=== PATIENT | male | born 1955 | race Caucasian/White ===

== ENCOUNTER → 2021-02-06 02:49 | Outpatient (CLI) | payer SELFPAY ==
[2021-02-06 13:12] LABS: Influenza Control Positive
[2021-02-06 19:39] LABS: SARS-CoV-2 RNA PCR Negative
== END ==
PROVIDERS: PCP Family Medicine; Visit Provider Physician Assistant
DX: R05.9 Cough, unspecified (principal); Z20.822 Contact with and (suspected) exposure to COVID-19
CPT/HCPCS: 87804; C9803; U0003; U0005

== ENCOUNTER → 2021-02-26 15:43 | Outpatient (CLI) | payer MEDICARE, SELFPAY ==
--- NOTE | ~2021-02-26 | XR_ITS ---
EXAMINATION: XR chest 2V DATE: 02/26/2021 16:16 INDICATION: Unspecified acute lower respiratory infection. COVID-19 positive 3 weeks ago. Fever and s hortness of breath. TECHNIQUE: Frontal and lateral views of the chest were obtained. COMPARISON: Chest 2 views 09/13/2007 FINDINGS: A calcified left lung nodule is consistent with old granulomatous disease. No pleural effus ion or pneumothorax. The heart size is normal. IMPRESSION: 1. No acute cardiopulmonary disease. Reviewed, dictated and finalized at location B. SAFETY ENGINEER
== END ==
PROVIDERS: PCP Family Medicine; Visit Provider Family Medicine
DX: J22 Unspecified acute lower respiratory infection (principal)
CPT/HCPCS: 71046

== ENCOUNTER 2022-11-17 14:35 | Emergency (ER) | payer MEDICARE, SELFPAY ==
--- NOTE | ~2022-11-17 | XR_ITS ---
EXAM: XR foot LT min 3V DATE: 11/17/2022 15:06 HISTORY: left foot pain DORSAL FOOT PAIN . COMPARISON: None available. FINDINGS: Normal mineralization. No fracture or dislocation. No lytic or blastic lesion. Moderate de generative change at the first MTP joint. Achilles and plantar enthesopathy. No erosion or periosteal change. Soft tissues within normal limits. IMPRESSION: No acute osseous finding in the left foot. Reviewed, dictated and finalized at location K.
[2022-11-17 15:39] VITALS: BP 141/90; PULSE 98; RESP 20; TEMP 37.2; O2SAT 98
--- NOTE | 2022-11-17 17:43 | ED.GENADULT ---
HPI - General Adult General Chief complaint: Extremity Injury, Lower Stated complaint: left foot injury Time Seen by Provider: 11/17/22 17:42 Source: patient Mode of arrival: wheelchair Limitations: no limitations History of Present Illness HPI narrative: This is a 59-year-old male who presents to the ED with chief complaint of a left foot injury that occurred today. Patient reports he stubbed his toe earlier today and then while laying in bed his dog jumped on the bed, further injury to the foot. He reports the dog seemed to improve until his toes backwards. He now reports dorsal foot pain near the metatarsophalangeal joints. States he has been having difficulty with ambulation due to pain. Denies any further site of pain or injury. Denies numbness or weakness. Denies wounds. 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 Tinnitus of both ears Surgical History Surgical History H/O wrist surgery Family History Family History Sibling Bladder cancer Colon cancer Lung cancer Diabetes mellitus Mother Breast cancer Father Skin cancer Social History Social History Social History: Caffeine-coffee Smoking status: Never smoker Second hand tobacco smoke exposure: No Alcohol intake: former Substance use: never Substance use type: does not use Lack of Transportation: No Lack of Food: Never True Current Housing: I Have Housing Concerned About Future Housing: No Difficulty Paying Gas/Electric Bills: No Difficulty Paying for Meds: No Currently Unemployed: No Education: Trade/Vocational Certificate Difficulty w/ Childcare or Family Care: No Living arrangements: with family Occupation/Education: retired Gender identity (if verbalized by the patient): Male Spiritual care concerns: No Agree to blood products: Yes Exam Narrative: GENERAL: Well-appearing, well-nourished, and in no acute distress. HEAD: Normocephalic, atraumatic. MSK: Normal range of motion. No edema. Mild tenderness to palpation dorsally to the first and second MTP joints of the left foot. No swelling. No bruising. No deformity , neurovascularly intact distally. SKIN: Warm, dry, no rash. No wounds. No warmth, erythema NEURO: Alert and oriented x3. No focal deficits. PSYCH: Normal mood and affect. Course Vital Signs Vital signs: Vital Signs Temperature 99 F 11/17/22 15:39 Pulse Rate 98 11/17/22 15:39 Respiratory Rate 20 11/17/22 15:39 Blood Pressure 141/90 H 11/17/22 15:39 Pulse Oximetry 98 11/17/22 15:39 Temperature 99 F 11/17/22 15:39 Pulse Rate 98 11/17/22 15:39 Respiratory Rate 20 11/17/22 15:39 Blood Pressure 141/90 H 11/17/22 15:39 Pulse Oximetry 98 11/17/22 15:39 Medical Decision Making MDM Narrative Medical decision making narrative: This is a 67-year-old male who presents to the ED with chief complaint of left foot injury. Dog jumped on his left foot. He also stubbed his left great toe. Vitals are normal. Exam shows mild tenderness to the dorsum of the foot. X-rays are negative for any acute findings. Symptoms consistent with flare above arthritis versus ligamentous injury. He already has crutches to use to remain weightbearing as tolerated. He has a follow-up appointment with PCP this week. Naproxen twice per
[2022-11-17 18:22] VITALS: BP 144/76; PULSE 90; RESP 16; O2SAT 99
== END 2022-11-17 18:23 | disposition home or self-care (01) ==
LOC: ANHED 17:57
PROVIDERS: Emergency Provider Physician Assistant; PCP Family Medicine
DX: S99.922A Unspecified injury of left foot, initial encounter (principal); F41.9 Anxiety disorder, unspecified; I10 Essential (primary) hypertension; K21.9 Gastro-esophageal reflux disease without esophagitis; E78.5 Hyperlipidemia, unspecified; W22.09XA Striking against other stationary object, initial encounter
CPT/HCPCS: 73630; 99283

== ENCOUNTER 2023-10-09 10:22 | Outpatient (CLI) | payer MEDICARE, SELFPAY ==
[2023-10-09 10:39] LABS: Basophils Absolute Auto 0.1 K/mm3 (0.0-0.1); Basophils Percent Auto 1.1 % (0.2-1.2); Eosinophils Absolute Auto 0.3 K/mm3 (0-0.3); Eosinophils Percent Auto 4.2 % (0-4.4); Hematocrit 50.3 % (42.0-52.0); Hemoglobin 16.9 g/dL (14.0-18.0); Immature Granulocyte Absolute 0.02 K/mm3 (0.00-0.031); Immature Granulocyte Percent A 0.2 % (0-0.5); Lymphocytes Absolute Auto 2.54 K/mm3 (0.9-3.2); Mean Corpuscular HGB Conc 33.6 g/dl (32-36); Mean Corpuscular Hemoglobin 31.4 pg (26-34); Mean Corpuscular Volume 93.5 fl (80-100); Mean Platelet Volume 9.4 fl (7.4-10.4); Monocytes Absolute Auto 0.8 K/mm3 (0.1-0.6); Monocytes Percent Auto 9.6 % (2.6-8.5); Neutrophils Absolute Auto 4.4 K/mm3 (1.3-6.7); Neutrophils Percent Auto 53.9 % (45.5-73.1); Platelet Count Result 232 k/mm3 (150-375); Red Blood Count 5.38 M/mm3 (4.6-6.20); Red Cell Distribution Width 15.1 % (11.5-14.5); White Blood Count 8.2 K/mm3 (4.5-10.0)
[2023-10-09 12:54] LABS: Alanine Aminotransferase 131 U/L (6-50); Albumin Level 4.6 g/dL (3.5-5.1); Alkaline Phosphatase 96 U/L (38-126); Anion Gap 10 mmol/L (4-12); Aspartate Amino Transferase 126 U/L (17-59); Bilirubin,Total 0.7 mg/dL (0.2-1.3); Blood Urea Nitrogen 11 mg/dL (9-20); Calcium 9.6 mg/dL (8.4-10.2); Carbon Dioxide 29 mmol/L (22-30); Chloride 97 mmol/L (98-107); Estimated Glomerular Filt Rate > 60; Glucose 111 mg/dL (65-110); Iron 121 ug/dL (49-181); Potassium 4.2 mmol/L (3.4-5.0); Sodium 136 mmol/L (137-145)
[2023-10-09 13:07] LABS: Percent Iron Saturation 39 % (20-50)
[2023-10-09 13:08] LABS: Transferrin 239 mg/dL (206-381)
== END 2023-10-09 10:23 | disposition home or self-care (01) ==
LOC: ANHLAB 10:26
PROVIDERS: Nurse Practitioner Family; Visit Provider Internal Medicine Hematology & Oncology
DX: E83.110 Hereditary hemochromatosis (principal)
CPT/HCPCS: 36415; 80053; 82728; 83540; 83550; 84466; 85025

== ENCOUNTER 2024-01-06 13:28 | Outpatient (CLI) | payer MEDICARE, SELFPAY ==
[2024-01-06 13:48] LABS: Basophils Absolute Auto 0.1 K/mm3 (0.0-0.1); Basophils Percent Auto 1.3 % (0.2-1.2); Eosinophils Absolute Auto 0.2 K/mm3 (0-0.3); Eosinophils Percent Auto 2.2 % (0-4.4); Hematocrit 48.3 % (42.0-52.0); Hemoglobin 16.9 g/dL (14.0-18.0); Immature Granulocyte Absolute 0.03 K/mm3 (0.00-0.031); Immature Granulocyte Percent A 0.4 % (0-0.5); Lymphocytes Absolute Auto 2.12 K/mm3 (0.9-3.2); Lymphocytes Percent Auto 29.7 % (18.3-44.2); Mean Corpuscular Hemoglobin 34.3 pg (26-34); Mean Platelet Volume 8.9 fl (7.4-10.4); Monocytes Absolute Auto 0.8 K/mm3 (0.1-0.6); Monocytes Percent Auto 11.2 % (2.6-8.5); Neutrophils Percent Auto 55.2 % (45.5-73.1); Platelet Count Result 205 k/mm3 (150-375); Red Blood Count 4.93 M/mm3 (4.6-6.20); Red Cell Distribution Width 13.2 % (11.5-14.5); White Blood Count 7.2 K/mm3 (4.5-10.0)
[2024-01-06 18:34] LABS: Iron 239 ug/dL (49-181)
[2024-01-06 18:47] LABS: Percent Iron Saturation 89 % (20-50)
== END 2024-01-06 13:29 | disposition home or self-care (01) ==
LOC: ANHLAB 13:29
PROVIDERS: Visit Provider Internal Medicine Hematology & Oncology
DX: E83.110 Hereditary hemochromatosis (principal)
CPT/HCPCS: 36415; 82728; 83540; 83550; 85025

== ENCOUNTER 2024-03-15 13:33 | Outpatient (CLI) | payer MEDICARE, SELFPAY ==
[2024-03-15 13:51] LABS: Basophils Absolute Auto 0.1 K/mm3 (0.0-0.1); Basophils Percent Auto 1.3 % (0.2-1.2); Eosinophils Absolute Auto 0.1 K/mm3 (0-0.3); Eosinophils Percent Auto 1.7 % (0-4.4); Hematocrit 47.9 % (42.0-52.0); Hemoglobin 16.6 g/dL (14.0-18.0); Immature Granulocyte Absolute 0.02 K/mm3 (0.00-0.031); Immature Granulocyte Percent A 0.3 % (0-0.5); Lymphocytes Absolute Auto 1.82 K/mm3 (0.9-3.2); Lymphocytes Percent Auto 26.3 % (18.3-44.2); Mean Corpuscular HGB Conc 34.7 g/dl (32-36); Mean Corpuscular Hemoglobin 35.3 pg (26-34); Mean Corpuscular Volume 101.9 fl (80-100); Mean Platelet Volume 9.1 fl (7.4-10.4); Monocytes Absolute Auto 0.5 K/mm3 (0.1-0.6); Monocytes Percent Auto 7.7 % (2.6-8.5); Neutrophils Absolute Auto 4.3 K/mm3 (1.3-6.7); Neutrophils Percent Auto 62.7 % (45.5-73.1); Platelet Count Result 227 k/mm3 (150-375); White Blood Count 6.9 K/mm3 (4.5-10.0)
--- OUTSIDE RECORDS SUMMARY | 2024-03-15 14:10 | XMS_ITS | Clinical Summary ---
Author Organization [facility] Nabil arora Jose Address [address] [place] [address] Care Team Providers Care Digital Account Supervisor Name Role Phone Ritu Leigh MD Primary Care Provider [phone] Allergies No known active allergies Medications amitriptyline HCl (AMITRIPTYLINE ORAL) Take 25 mg by mouth daily. Active DICLOFENAC SODIUM OP Take 50 mg by mouth daily. Active SIMVASTATIN ORAL Take 20 mg by mouth daily. Active METOPROLOL TARTRATE ORAL Take 50 mg by mouth daily. Active ALPRAZolam (XANAX) 0.5 mg tablet Take 0.5 mg by mouth nightly as needed for Anxiety. Active Active Problems Problem Noted Date Diagnosed Date Hereditary hemochromatosis 09/14/2023 Encounters Date Type Department Care Team Description 03/15/2024 Telephone [facility] Oncology and Hematology - [address] [place] [address] Arnold Yeung MD Labs for appt 03/14/2024 Orders Only [facility] Oncology and Hematology - [place] [address] [place] [address] Arnold Yeung MD Hereditary hemochromatosis (Primary Dx) 02/23/2024 External Device Data STL ABSTRACTION Provider, Abstract 01/08/2024 Orders Only [facility] Oncology and Hematology - [place] [address] [place] [address] Arnold Yeung MD 12/16/2023 External Device Data STL ABSTRACTION Provider, Abstract from Last 3 Months Family History Medical History Relation Name Comments Cancer Sister Relation Name Status Comments Father Mother Sister Alive Social History Tobacco Use Types Packs/Day Years Used Date Smoking Tobacco: Never Alcohol Use Standard Drinks/Week Comments Yes 0 (1 standard drink = 0.6 oz pur e alcohol) socially Sex and Gender Information Value Date Recorded Sex Assigned at Not on file Legal Sex Male 12:44 PM CDT Gender Identity Not on file Sexual Orientation Not on file Last Filed Vital Signs Vital Sign Reading Time Taken Comments Blood Pressure 173/103 09/14/2023 2:02 PM CDT Pulse 63 09/14/2023 2:02 PM CDT Temperature 36.7 ??C (98 ??F) 09/14/2023 1:59 PM CDT Respiratory Rate 18 09/14/2023 1:59 PM CDT Oxygen Saturation 94% 09/14/2023 1:59 PM CDT Inhaled Oxygen Concentration - - Weight 83 kg (183 lb) 09/14/2023 1:59 PM CDT Height 167.6 cm (5' 6 ) 09/14/2023 1:59 PM CDT Body Mass Index 29.54 09/14/2023 1:59 PM CDT Plan of Treatment Upcoming Encounters Date Type Department Care Team (Late st Contact Info) Description 03/16/2024 1:15 PM MOTOR VEHICLE FIELD REPRESENTATIVE Office Visit [facility] Oncology and Hematology [facility] [address] [facility] [address] [place] [address] Arnold Yeung MD [address] [facility] [address] [place] [address] Health Maintenance Due Date Last Done Comments Pre-Diabetes and Diabetes Screening 1954 DTAP/TDAP/TD VACCINES (1 - Tdap) 1973 COLORECTAL SCREENING 08/05/1999 Colorectal Cancer Screening 08/05/1999 FIT-DNA Q 3 years 08/05/1999 FIT/FOBT Q 1 year 08/05/1999 Flex Sig/CT Colonography Q 5 years 08/05/1999 PNEUMOCOCCAL VACCINE 65+ YEARS (1 of 1 - PCV) 08/05/19 05 ZOSTER VACCINE (1 of 2) 2004 INFLUENZA VACCINE (#1) 2023 12/16/2013 [place]) Prev entative Visit/Annual Wellness Visit 02/17/2024 RSV VACCINE (60+ or ) (1 - 1-dose 75+ series) 2029 Procedures Procedure Name Priority Date/Time Associated Diagnosis Comments IRON LEVEL Routine 01/06/2024 2:51 PM MOTOR VEHICLE FIELD REPRESENTATIVE CBC WITH DIFFERENTIAL Routine 01/06/2024 2:22 PM MOTOR VEHICLE FIELD REPRESENTATIVE from Last 3 Months Results * IRON LEVEL (01/06/2024 2:51 PM MOTOR VEHICLE FIELD REPRESENTATIVE) Blood Arnold Yeung MD CHEMISTRY ORDERABLES Final Resu lt * CBC WITH DIFFERENTIAL (01/06/2024 2:22 PM MOTOR VEHICLE FIELD REPRESENTATIVE) Blood Arnold Yeung MD HEMATOLOGY ORDERABLES Final Res ult from Last [address] [place] [address] [employer] [facility] [facility] Address: [address] [address] Care Teams Digital Account Supervisor Relationship Specialty Start Date End Date Ritu Leigh MD [address] [place] [address] PCP - General Family Practice 09/15/23
--- OUTSIDE RECORDS SUMMARY | 2024-03-15 14:10 | XMS_ITS | Continuity of Care Document ---
Author Organization [facility] Address [address] [facility] [address] [place] [address] Phone Care Team Providers Care Chimney Repairer Name Role Phone [facility] Unavailable Unavail able Kurt Evans Unavailable Unavailable Procedures Procedure Date SV Plastic Sph =/- 7.12 To +/- 20 D Frames Deluxe Tint Photochromatic, Plastic Tax - Medical SV Poly Carb Sph +/- 7.12 To +/- 20 D Au Frames Deluxe Polycarb Lens Per Lens Tint Photochromatic, Polycarb 7 Scratch Resistant Coating Eye Exam, New Patient Refraction Advance Directives Directive Yes / No Effective Date File Name No Information Encounters Encounter Description Practice Location Reason(s) For Visit Diagnoses Date Provider Providers Copied on Encounter [facility], [address] [place], [place] [address], [place], [place], [id number], [place] tel:[phone] [facility] No Information [address] [facility] . [address] [facility], [facility] [address], [place], [place], [id number], [place]. tel:[phone] Referring Provider: Anil Arana [facility], [place], [address]. tel:[phone] sulting Provider: Kurt Evans, [address] [place] [address], [place], [address]. tel:[phone] [facility], [address], [place], [place], [id number], [place] tel:[phone] [facility] No Information 7 [facility] . [address] [facility], [address], [place], [place], [address], [place]. tel:[phone] Referring Provider: Anil Arana, [address] [place] [address] [address], [place], [address]. tel:[phone] sulting Provider: Kurt Evans, [address] [place] [address], [place], [address]. tel:[phone] [facility], [address], [place], [place], [id number], [place] tel:[phone] [facility] No Information 7 Nava JAREK Ma. [address] [place] [address] , [address], [place], [address], [place]. tel:[phone] Family History Family Member Type Diagnosis Age At Onset No Information Payers Payer name Insurance type Covered libertarian ID Authoriza tion(s) No Information Social History Type Description Quantity Date Captured Comments Sex Male Smoking Status No Information Chief Complaint And Reason For Visit No Information Reason For Referral Reason For Referral No Information History Of Present Illness Encounter Date Complaint History Of Prese nt Illness No Information Functional Status Date Functional Assessmen t No Information Instructions Date Instruction Additional Infor mation No Information Assessments Type Assessment Date No Information Patient Care Teams Name Effective Dates (start - stop) Status Members No Information
--- OUTSIDE RECORDS SUMMARY | 2024-03-15 14:10 | XMS_ITS | Encounter Summary ---
Author Organization [facility] Address [address] [place] [address] Care Team Providers Care String Cutter Name Role Phone Ritu Leigh MD Primary Care Provider [phone] Encounter Details Date Type Department Care Team (Late Contact Info) Description 03/14/2024 Orders Only [facility] Oncology and Hematology [facility] [address] [place] [address] Arnold Yeung MD [facility] [address] [place] [address] Hereditary hemochromatosis (Primary Dx) Social History Tobacco Use Types Packs/Day Years Used Date Smoking Tobacco: Never Alcohol Use Standard Drinks/Week Comments Yes 0 (1 standard drink = 0.6 oz pur e alcohol) socially Sex and Gender Information Value Date Recorded Sex Assigned at Not on file Legal Sex Male 12:44 PM CDT Gender Identity Not on file Sexual Orientation Not on file documented as of this encounter Plan of Treatment Upcoming Encounters Date Type Department Care Team (Late Contact Info) Description 03/16/2024 1:15 PM INTAKE MANAGER Office Visit [facility] Oncology and Hematology - [place] [address] [place] [address] Arnold Yeung MD [facility] [address] [place] [address] Scheduled Orders Name Type Priority Associated Diagnoses Orde r Schedule COMPREHENSIVE METABOLIC PANEL Lab Routine Hereditary hemochromatosis Expected: 03/14/2024, Expires: 03/14/2025 CBC WITH DIFFERENTIAL Lab Routine Hereditary hemochromatosis Expected: 03/14/2024, Expires: 03/14/2025 FERRITIN Lab Routine Hereditary hemochromatosis Expected: 03/14/2024, Expires: 03/14/2025 IRON, TIBC, AND PERCENT SATURATION Lab Routine Hereditary hemochromatosis Expected: 03/14/2024, Expires: 03/14/2025 documented as of this encounter Visit Diagnoses Diagnosis Hereditary hemochromatosis- Primary documented in this encounter Care Teams String Cutter Relationship Specialty Start Date End Date Ritu Leigh MD [address] [place] [phone] PCP - General Family Practice 09/15/23 documented as of this encounter
--- OUTSIDE RECORDS SUMMARY | 2024-03-15 14:10 | XMS_ITS | Clinical Summary ---
Author Organization [facility] Address [address] [facility] [place] [address] Phone Care Team Providers Care Aws Developer Name Role Phone Donna Leigh APRN Unavailable Unavailable Ritu Leigh MD Primary Care Provider [phone] Lupe Morales PSYCHOLOGIST DEVELOPMENTAL Unavailable [phone] Allergies No known active allergies Medications ALPRAZolam (XANAX) 0.5 mg tablet 0 08/17/2017 Active amitriptyline (ELAVIL) 25 mg tablet TK 1 T PO BID 2 07/17/[address] (VOLTAREN) 50 mg EC tablet Take 1 tablet (50 mg total) by mouth 2 (two) times a day 0 06/01/2017 Active metoprolol (LOPRESSOR) 25 mg tablet TK 1 T PO BID 0 06/30/2017 Active simvastatin (ZOCOR) 20 mg tablet TK 1 T PO D 5 08/21/2017 Active colestipoL (COLESTID) 1 gram tablet 06/03/2019 Active doxycycline hyclate 100 mg capsule Take 1 tablet/caps ule (100 mg total) by mouth 2 (two) times a day 07/30/2021 Active Active Problems Problem Noted Date Diagnosed Date Hemochromatosis 02/19/2017 Resolved Problems Problem Noted Date Diagnosed Date Resolved Date 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 09/05/2017 Immunizations Name Administration Dates Next Due Influenza, Trivalent, IM (ANDREW) 12/16/2013 Surgical History Surgery Date Site/Laterality Comments COLONOSCOPY Medical History Medical History Date Comments Hemochromatosis Hypertension Hypercholesteremia Depression Family History Medical History Relation Name Comments Diabetes Brother Heart attack Father Colon cancer Sister Relation Name Status Comments Brother Father Sister Social History Tobacco Use Types Packs/Day Years Used Date Smoking Tobacco: Never Smokeless Tobacco: Never Alcohol Use Standard Drinks/Week Comments Yes 0 (1 standard drink = 0.6 oz pur e alcohol) AUDIT-C Answer Date Recorded Q1: How often do you have a drink containing alc ohol? Monthly or less 06/30/2022 Q2: How many drinks containi ng alcohol do you have on a typical day when you are drinking? 1 or 2 06/30/2022 Q3: How often do you have si x or more drinks on one occasion? 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 Gender Identity Not on file Sexual Orientation Not on file Obstetrics History Last Filed Vital Signs Vital Sign Reading Time Taken Comments Blood Pressure 167/113 06/29/2023 3:11 PM CDT Pulse 65 06/29/2023 3:11 PM CDT Temperature 36.3 ??C (97.4 ??F) 06/29/2023 3:11 PM CD T Respiratory Rate 18 06/29/2023 3:11 PM CDT Oxygen Saturation 96% 06/29/2023 3:11 PM CDT Inhaled Oxygen Concentration - - Weight 84.9 kg (187 lb 3.2 oz) 06/29/2023 3:11 P M CDT Height 167.6 cm (5' 6 ) 04/27/2023 2:54 PM CDT Body Mass Index 30.21 04/27/2023 2:54 PM CDT Plan of Treatment Health Maintenance Due Date Last Done Comments Colon Cancer Screening-Colonoscopy 1955 Depression Screening 1954 Fall Risk Assessment 1954 Hepatitis C Screening 1954 DTaP/Tdap/Td Vaccine (1 - Tdap) 1965 Hepatitis B Screening 1972 Zoster Vaccine (1 of 2) 2004 Pneumococcal vaccine 65+ (1 of 1 - PCV) 08/05/2019 Well Visit 65+ 08/05/2019 Prostate Cancer Screening-PSA 09/14/2023 09/13/2021 Influenza Vaccine (#1) 2023 12/16/2013 Procedures Procedure Name Priority Date/Time Associated Diagnosis Comments PSA SCREEN Routine 09/13/2021 8:49 AM CDT from Last 3 Months or Most Recently Relevant to Health Maintenance Results * PSA screen (09/13/2021 8:49 AM CDT) PSA-Total 1.71 <=5.40 ng/mL NAPOLEON ALVARADO Comment: Interpretive Data ?AGE ? SEX ?REFERENCE INTERVAL 0 minutes-150 years ?Female ?None 0 minutes-49 years ? Male ?None ? 50-59 years ? Male ?0-3.90 ? 60-69 years ? Male ?0-5.40 ? 70-79 years ? Male ?0-6.20 ? 80-150 years ?Male ?0-6.20 The Declan PSA Total assay procedure was used. Results from different manufacturers or methods may not be comparable. Serial testing should be performed using the same method. Current interpretive data last revised 21. Testing performed by: [facility], [address] [place] [address]., [address] Blood 09/13/2021 8:49 AM CDT 09/13/2021 9:55 AM CDT us Joelle TREVIZO LAB BLOOD ORDERABLES Final Result [facility] [address] [facility] Department [place] [address] from Last 3 Months or Most Recently Relevant to Health Maintenance Insurance [employer] MEDICARE HMO [employer] MEDICARE HMO Care Teams Aws Developer Relationship Specialty Start Date End Date Ritu Leigh MD PCP - General Family Medicine 05/10/18 Donna Leigh APRN Neurosurgery 08/28/17 Lupe Morales NP Nurse Practitioner Nurse Practitioner 04/06/23
--- OUTSIDE RECORDS SUMMARY | 2024-03-15 14:10 | XMS_ITS | Encounter Summary ---
Author Organization [facility] Address [address] [place] [address] Care Team Providers Care Track Layer Head Name Role Phone Ritu Leigh MD Primary Care Provider [phone] Reason for Visit * Reason Onset Date Comments Labs for appt 03/15/2024 Encounter Details Date Type Department Care Team (Late Contact Info) Description 03/15/2024 Telephone [facility] Oncology and [facility] [address] [place] [address] Arnold Yeung MD [address] [facility] [address] [place] [address] Labs for appt Social History Tobacco Use Types Packs/Day Years Used Date Smoking Tobacco: Never Alcohol Use Standard Drinks/Week Comments Yes 0 (1 standard drink = 0.6 oz pur e alcohol) socially Sex and Gender Information Value Date Recorded Sex Assigned at Not on file Legal Sex Male 12:44 PM CDT Gender Identity Not on file Sexual Orientation Not on file documented as of this encounter Miscellaneous Notes * Telephone Encounter - Ileana Hoyos - 03/15/2024 9:37 AM CST LVM for patient asking if he could get his labs done today for his appointment tomorrow. METER REPAIR SUPERVISOR documented in this encounter Plan of Treatment Upcoming Encounters Date Type Department Care Team (Late Contact Info) Description 03/16/2024 1:15 PM GAS METER REPAIR SUPERVISOR Office Visit [facility] Oncology [facility] [address] [place] [address] Arnold Yeung MD [address] [facility] [address] [place] [address] documented as of this encounter Visit Diagnoses Not on filedocumented in this encounter Care Teams Track Layer Head Relationship Specialty Start Date End Date Ritu Leigh MD [address] [place] [address] PCP - General Family Practice 09/15/23 documented as of this encounter
--- OUTSIDE RECORDS SUMMARY | 2024-03-15 14:10 | XMS_ITS | Referral Summary ---
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 Testing performed by: [facility], [address] [place] [address]., [address] Blood 09/13/2021 8:49 AM CDT 09/13/2021 9:55 AM CDT us Joelle TREVIZO LAB BLOOD ORDERABLES Final Result [facility] [address] [facility] Department [place] [address] from Last 3 Months or Most Recently Relevant to Health Maintenance Insurance [facility] MEDICARE HMO [facility] MEDICARE HMO Care Teams Dry Chain Puller Relationship Specialty Start Date End Date Ritu Leigh MD PCP - General Family Medicine 05/10/18 Donna Leigh APRN Neurosurgery 08/28/17 Lupe Morales NP Nurse Practitioner Nurse Practitioner 04/06/23
[2024-03-15 15:51] LABS: Alanine Aminotransferase 145 U/L (6-50); Albumin Level 4.5 g/dL (3.5-5.1); Alkaline Phosphatase 79 U/L (38-126); Anion Gap 11 mmol/L (4-12); Aspartate Amino Transferase 175 U/L (17-59); Bilirubin,Total 0.8 mg/dL (0.2-1.3); Blood Urea Nitrogen 10 mg/dL (9-20); Calcium 9.2 mg/dL (8.4-10.2); Carbon Dioxide 25 mmol/L (22-30); Chloride 101 mmol/L (98-107); Estimated Glomerular Filt Rate > 60; Glucose 96 mg/dL (65-110); Potassium 4.2 mmol/L (3.4-5.0); Sodium 137 mmol/L (137-145)
[2024-03-15 16:01] LABS: Iron 140 ug/dL (49-181)
[2024-03-15 16:11] LABS: Percent Iron Saturation 51 % (20-50)
== END 2024-03-15 13:34 | disposition home or self-care (01) ==
LOC: ANHLAB 13:35
PROVIDERS: Visit Provider Internal Medicine Hematology & Oncology
DX: E83.110 Hereditary hemochromatosis (principal)
CPT/HCPCS: 36415; 80053; 82728; 83540; 83550; 85025

== ENCOUNTER 2024-04-11 09:42 | Outpatient (CLI) | payer MEDICARE, SELFPAY ==
[2024-04-11 09:56] LABS: Basophils Absolute Auto 0.1 K/mm3 (0.0-0.1); Eosinophils Absolute Auto 0.2 K/mm3 (0-0.3); Eosinophils Percent Auto 2.8 % (0-4.4); Hematocrit 48.6 % (42.0-52.0); Hemoglobin 17.3 g/dL (14.0-18.0); Immature Granulocyte Absolute 0.03 K/mm3 (0.00-0.031); Immature Granulocyte Percent A 0.4 % (0-0.5); Lymphocytes Absolute Auto 1.53 K/mm3 (0.9-3.2); Lymphocytes Percent Auto 22.4 % (18.3-44.2); Mean Corpuscular HGB Conc 35.6 g/dl (32-36); Mean Corpuscular Hemoglobin 35.7 pg (26-34); Mean Corpuscular Volume 100.4 fl (80-100); Monocytes Absolute Auto 0.5 K/mm3 (0.1-0.6); Monocytes Percent Auto 7.5 % (2.6-8.5); Neutrophils Absolute Auto 4.5 K/mm3 (1.3-6.7); Neutrophils Percent Auto 65.9 % (45.5-73.1); Platelet Count Result 192 k/mm3 (150-375); Red Blood Count 4.84 M/mm3 (4.6-6.20); Red Cell Distribution Width 11.9 % (11.5-14.5); White Blood Count 6.8 K/mm3 (4.5-10.0)
--- OUTSIDE RECORDS SUMMARY | 2024-04-11 10:34 | XMS_ITS | Referral Summary ---
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 09/05/2017 Immunizations Immunization Administration Dates Next Due Influenza, Trivalent, IM [...] on file Legal Sex Male 3:00 PM CATERER HELPER Gender Identity Not on file Sexual Orientation Not on file Last Filed Vital Signs Vital Sign Reading Time Taken Comments Blood Pressure 167/113 06/29/2023 3:11 PM CDT Pulse 65 06/29/2023 3:11 PM CDT Temperature 36.3 C (97.4 F) 06/29/2023 3:11 PM CDT Respiratory Rate 18 06/29/2023 3:11 PM CDT [...] <=5.40 ng/mL NAPOLEON ALVARADO Comment: Interpretive Data AGE SEX REFERENCE INTERVAL 0 minutes-150 years Female None 0 minutes-49 years Male None 50-59 years Male 0-3.90 60-69 years Male 0-5.40 70-79 years Male 0-6.20 80-150 years Male 0-6.20 The Declan PSA Total assay procedure was used. Results from different manufacturers or methods may not be comparable. Serial testing should be performed using the same method. Current interpretive data last revised 21. Testing performed by: [facility], [address] [place] [address], [place]., [address] Blood 09/13/2021 8:49 AM CDT 09/13/2021 9:55 AM CDT Joelle TREVIZO LAB BLOOD ORDERABLES Final Result NAPOLEON [address] [facility] [place] [address] from Last 3 Months or Most Recently Relevant to Health Maintenance Insurance [employer] MEDICARE HMO HU[employer]NA MEDICARE HMO Care Teams Butcher Helper Relationship Specialty Start Date End Date Ritu Leigh MD PCP - General Family Medicine 05/10/18 Donna Leigh APRN Neurosurgery 08/28/17 Lupe Morales NP Nurse Practitioner Nurse Practitioner 04/06/23
--- OUTSIDE RECORDS SUMMARY | 2024-04-11 10:34 | XMS_ITS | Continuity of Care Document ---
Author Organization [facility] Address [address] [place] [address] Phone Care Team Providers Care Head Of Sales Promotion Name Role Phone [facility] Unavailable Unavail able Kurt Evans Unavailable [...] Diagnoses Date Provider Providers Copied on Encounter [facility], [address] [place], [place] [address], [place], [place], [id number], [place] tel:[phone] [facility] No Information 0[address] [employer] [facility] [employer] . [address] [facility], [facility] [address], [place], [place], [id number], [place]. tel:[phone] Referring Provider: Anil Arana [facility], [place], [address]. tel:[phone] sulting Provider: Kurt Evans, [address] [place] [address], [place], [address]. tel:[phone] [facility], [address], [place], [place], [id number], [place] tel:[phone] [facility] No Information 7 [facility] [employer] . [address] [facility], [address], [place], [place], [id number], [place]. tel:[phone] Referring Provider: nAil Arana, [address] [place] [address] [address], [place], [address]. tel:[phone] sulting Provider: Kurt Evans, [address] [place] [address], [place], [address]. tel:[phone] [facility], [address], [place], [place], [id number], [place] tel:[phone] [facility] No Information 7 Nava JAREK Ma. [address] [place] [address] , [address], [place], [address], [place]. tel:[phone] Family History Family Member Type Diagnosis Age [...]
--- OUTSIDE RECORDS SUMMARY | 2024-04-11 10:34 | XMS_ITS | Clinical Summary ---
Author Organization [facility] Nabil arora Jose Address [address] [place] [address] Care Team Providers Care Psych Rn Name Role Phone Ritu Leigh MD Primary Care Provider [phone] Allergies No known active allergies Medications amitriptyline [...] Encounters Date Type Department Care Team Description 04/07/2024 Orders Only [facility] Oncology and Hematology - Ozzy [address] [place] [address] Arnold Yeung MD Hereditary hemochromatosis (Primary Dx) 03/16/2024 1:15 PM PROFESSIONAL SOCCER PLAYER Office Visit [facility] Oncology and Hematology - Ozzy [address] [place] [address] Arnold Yeung MD Hereditary hemochromatosis (Primary Dx) 03/16/2024 Orders Only [facility] Oncology and Hematology - Ozzy [address] [place] [address] Arnold Yeung MD 03/15/2024 Telephone [facility] Oncology and Hematology - Ozzy [address] [place] [address] Arnold Yeung MD Labs for appt 03/14/2024 Orders Only [facility] Oncology and Hematology - Oz[address] [place] [address] Arnold Yeung MD Hereditary hemochromatosis (Primary Dx) 02/23/2024 External Device Data STL ABSTRACTION Provider, Abstract from Last 3 Months Family History Medical History Relation Name Comments Cancer Sister Relation Name Status Comments Father Mother Sister Alive Social History Tobacco Use Types Packs/Day Years Used Date Smoking Tobacco: Never Tobacco Cessation:Counseling Given: Not Answered Alcohol Use Standard Drinks/Week Comments Yes 0 (1 standard drink = 0.6 oz pur e alcohol) socially Sex and Gender Information Value Date Recorded Sex Assigned at Not on file Legal Sex Male 12:44 PM CDT Gender Identity Not on file Sexual Orientation Not on file Last Filed Vital Signs Vital Sign Reading Time Taken Comments Blood Pressure 155/89 03/16/2024 1:41 PM PROFESSIONAL SOCCER PLAYER Pulse 69 03/16/2024 1:39 PM PROFESSIONAL SOCCER PLAYER Temperature 36.4 C (97.5 F) 03/16/2024 1:39 PM PROFESSIONAL SOCCER PLAYER Respiratory Rate 15 03/16/2024 1:39 PM PROFESSIONAL SOCCER PLAYER Oxygen Saturation 96% 03/16/2024 1:39 PM PROFESSIONAL SOCCER PLAYER Inhaled Oxygen Concentration - - Weight 81.2 kg (179 lb) 03/16/2024 1:39 PM PROFESSIONAL SOCCER PLAYER Height 167.6 cm (5' 6 ) 09/14/2023 1:59 PM CDT Body Mass Index 28.89 09/14/2023 1:59 PM CDT Plan of Treatment Upcoming Encounters Date Type Department Care Team (Late st Contact Info) Description 07/14/2024 1:00 PM CDT Office Visit [facility] Oncology and Hematology - [address] [place] [address] Arnold Yeung MD [address] [facility] [address] [place] [address] Health Maintenance Due Date Last [...] INFLUENZA VACCINE (#1) 2023 12/16/2013 Medicare Advantage ([place]) Prev entative Visit/Annual Wellness Visit 02/17/2024 RSV VACCINE (60+ or ) (1 - 1-dose 75+ series) 2029 Procedures Procedure Name Priority Date/Time Associated Diagnosis Comments IRON PANEL Routine 03/15/2024 2:58 PM PROFESSIONAL SOCCER PLAYER COMPREHENSIVE METABOLIC PANEL Routine 03/15/2024 1:02 PM PROFESSIONAL SOCCER PLAYER CBC WITH DIFFERENTIAL Routine 03/15/2024 7:49 AM PROFESSIONAL SOCCER PLAYER from Last 3 Months Results * IRON PANEL (03/15/2024 2:58 PM PROFESSIONAL SOCCER PLAYER) Blood us Arnold Yeung MD CHEMISTRY ORDERABLES Final Resu lt * COMPREHENSIVE METABOLIC PANEL (03/15/2024 1:02 PM PROFESSIONAL SOCCER PLAYER) Blood Arnold Yeung MD CHEMISTRY ORDERABLES Final Resu lt * CBC WITH DIFFERENTIAL (03/15/2024 7:49 AM PROFESSIONAL SOCCER PLAYER) Blood us Arnold Yeung MD HEMATOLOGY ORDERABLES Final Res ult from Last 3 Months Insurance [facility] Care Teams Psych Rn Relationship Specialty Start Date End Date Ritu Leigh MD [address] [place] [id number] PCP - General Family Practice 09/15/23
--- OUTSIDE RECORDS SUMMARY | 2024-04-11 10:34 | XMS_ITS | Clinical Summary ---
Author Organization [facility] Address [address] [facility] [place] [address] Phone Care Team Providers Care Recycling Tech Name Role Phone Donna Leigh APRN Unavailable Unavailable Ritu Leigh MD Primary Care Provider [phone] Lupe Morales AGENCY SERVICE COORDINATOR Unavailable [phone] Allergies No known active allergies Medications ALPRAZolam [...] on file Legal Sex Male 3:00 PM CHOCOLATE TEMPERER Gender Identity Not on file Sexual Orientation [...] - Tdap) 1965 Hepatitis B Screening 1972 Pneumococcal vaccine 65+ (1 of 1 - PCV) 2004 Zoster Vaccine (1 of 2) 2004 Abdominal Aortic Aneurysm (AAA) Screen 08/05/2019 Well Visit 65+ 08/05/2019 Prostate Cancer Screening-PSA 09/14/2023 09/13/2021 Influenza Vaccine (#1) 2023 12/16/2013 Procedures Procedure Name Priority Date/Time Associated Diagnosis Comments PSA SCREEN Routine 09/13/2021 8:49 AM CDT from Last 3 Months or Most Recently Relevant to Health Maintenance Results * PSA screen (09/13/2021 8:49 AM CDT) PSA-Total 1.71 <=5.40 ng/mL NAPOLEON Comment: Interpretive Data AGE SEX REFERENCE INTERVAL [...] last revised 21. Testing performed by: [facility], [address] [place] [address]., [id number] Blood 09/13/2021 8:49 AM CDT 09/13/2021 9:55 AM CDT Joelle TREVIZO LAB BLOOD ORDERABLES Final Result [facility] [address] [facility] [place] [address] from Last 3 Months or Most Recently Relevant to Health Maintenance Insurance [facility] MEDICARE HMO HUMANA MEDICARE HMO Care Teams Recycling Tech Relationship Specialty Start Date End Date Ritu Leigh MD PCP - General Family Medicine 05/10/18 Donna Leigh APRN Neurosurgery 08/28/17 Lupe Morales NP Nurse Practitioner Nurse Practitioner 04/06/23
[2024-04-11 11:17] LABS: Iron 198 ug/dL (49-181)
[2024-04-11 11:34] LABS: Percent Iron Saturation 75 % (20-50)
== END 2024-04-11 09:43 | disposition home or self-care (01) ==
LOC: ANHLAB 09:43
PROVIDERS: Visit Provider Internal Medicine Hematology & Oncology
DX: E83.110 Hereditary hemochromatosis (principal)
CPT/HCPCS: 36415; 82728; 83540; 83550; 85025

== ENCOUNTER 2025-02-08 12:01 | Emergency (ER) | payer MEDICARE, SELFPAY ==
--- NOTE | ~2025-02-08 | XR_ITS ---
EXAMINATION: XR chest 2V 02/08/2025 13:31 INDICATION: Weakness PROCEDURE: 2 view chest COMPARISON: 02/26/2021 FINDINGS: The lungs are clear. The cardiomediastinal silhouette is within normal limits. There are no pleural effusions. There is no pneumothorax suspected. IMPRESSION: 1: NO ACUTE CARDIOPULMONARY DISEASE. Reviewed, dictated and finalized at location O. OCAPTIONER
--- NOTE | ~2025-02-08 | CT_ITS ---
EXAMINATION: CT brain wo con DATE: 02/08/2025 12:46 INDICATION: Head injury. TECHNIQUE: Computed tomography (CT) of the head was performed without intravenous contrast. The mA was adjusted according to patient size. Iterative reconstruction technique was employed. The dose-length product was 605.33 mGy-cm. COMPARISON: None FINDINGS: There is an old infarct in the right basal ganglia. There is diffuse brain volume loss. There are scattered areas of low attenuation in the cerebral white matter, which is within normal limits for the patient's age. There is no intracranial hemorrhage, acute infarction, or abnormal intracranial mass lesion. The ventricles are normal in size. There is mild mucosal thickening in the paranasal sinuses. The orbits are normal. The mastoid air cells are normal. IMPRESSION: 1. Old infarct in the right basal ganglia. Reviewed, dictated and finalized at location E. CLEANER
--- NOTE | ~2025-02-08 | CT_ITS ---
EXAMINATION: CT facial & cervical spine wo DATE: 02/08/2025 12:46 INDICATION: Trauma. TECHNIQUE: Computed tomography (CT) of the maxillofacial region and cervical spine was performed without intravenous contrast. Automated exposure control and iterative reconstruction technique were employed. The dose-length product was 396.18 mGy-cm. COMPARISON: None FINDINGS: MAXILLOFACIAL CT: The orbits are normal. There is mild mucosal thickening in the paranasal sinuses. There is rightward deviation of the nasal septum. No fracture. CERVICAL SPINE CT: There is 3 mm anterolisthesis of T1 on T2. Vertebral body heights are normal. There is mildly decreased disc height at C2-C3, C3-C4, and C4-C5 and severely decreased disc height at C5-C6, C6-C7, and C7-T1. There is multilevel severe uncovertebral joint and facet joint osteoarthritis. There is mild neural foraminal stenosis at multiple levels on either side. On the right, there is moderate neural foraminal stenosis at C5-C6. On the left, there is moderate neural foraminal stenosis at C6-C7. There is mild central canal stenosis at C3- C4, C5-C6, and C6-C7. IMPRESSION: 1. No fracture. 2. Severe cervical spondylosis. Reviewed, dictated and finalized at location E. NSED CERTIFIED ORTHOTIST
[2025-02-08 12:14] VITALS: BP 166/98; PULSE 79; RESP 20; TEMP 36.6; O2SAT 100
--- OUTSIDE RECORDS SUMMARY | 2025-02-08 12:38 | XMS_ITS | Clinical Summary ---
Author Organization [facility] Address [address] [facility] [place] [address] Phone Care Team Providers Care Brick Paving Checker Name Role Phone Donna Leigh APRN Unavailable Unavailable Ritu Leigh MD Primary Care Provider [phone] Lupe Morales TECHNOLOGY TEACHER Unavailable [phone] Allergies No known active allergies Medications ALPRAZolam [...] on file Legal Sex Male 3:00 PM SPECIAL ASSETS OFFICER Gender Identity Not on file Sexual Orientation [...] P M CDT Height 167.6 cm (5' 6) 04/27/2023 2:54 PM CDT Body Mass Index [...] (AAA) Screen 08/05/2019 Well Visit 65+ 08/05/2019 Influenza Vaccine (#1) 2024 12/16/2013 Prostate Cancer Screening-PSA Discontinued 09/13/2021 Procedures Procedure Name Priority Date/Time Associated Diagnosis [...] data last revised 21. Testing performed by: [facility], [address] [place] [address]., [address] Blood 09/13/2021 8:49 AM CDT 09/13/2021 9:55 AM CDT Joelle TREVIZO LAB BLOOD ORDERABLES Final Result NAPOLEON [address] [facility] [place] [address] from Last 3 Months or Most Recently Relevant to Health Maintenance Insurance [facility] MEDICARE HMO HUMANA MEDICARE HMO Care Teams Brick Paving Checker Relationship Specialty Start Date End Date Ritu Leigh MD PCP - General Family Medicine 05/10/18 Donna Leigh APRN Neurosurgery 08/28/17 Lupe Morales NP Nurse Practitioner Nurse Practitioner 04/06/23
--- OUTSIDE RECORDS SUMMARY | 2025-02-08 12:38 | XMS_ITS | Clinical Summary ---
Author Organization [facility] Nabil arora Stephanietong Address [address] [place] [address] Care Team Providers Care Recruiting Assistant Name Role Phone Ritu Leigh MD Primary Care Provider [phone] Allergies No known active allergies Medications DICLOFENAC SODIUM OP Take 50 mg by mouth daily. Active SIMVASTATIN ORAL Take 20 mg by mouth daily. Active METOPROLOL TARTRATE ORAL Take 50 mg by mouth daily. Active Active Problems Problem Noted Date Diagnosed Date Hereditary hemochromatosis 09/14/2023 Encounters Date Type Department Care Team Description 02/07/2025 External Device Data STL ABSTRACTION Provider, Abstract 02/06/2025 Orders Only [facility] Oncology and Hematology - [place] [address] [place] [address] Arnold Yeung MD Hereditary hemochromatosis 01/31/2025 External Device Data STL ABSTRACTION Provider, Abstract 01/23/2025 Orders Only [facility] Oncology and Hematology - [place] [address] [place] [address] Arnold Yeung MD Hereditary hemochromatosis 01/09/2025 [facility] Oncology and Hematology - [place] [address] [place] [address] Arnold Yeung MD Hereditary hemochromatosis 12/26/2024 Orders Only [facility] Oncology and Hematology - [place] [address] [place] [address] Arnold Yeung MD Hereditary hemochromatosis 12/23/2024 Orders Only [facility] Oncology and Hematology - Ozzy [address] [place] [id number] Arnold Yeung MD 12/22/2024 2:00 PM HOSTEL MANAGER Office Visit [facility] Oncology and Hematology - [address] [place] [address] Arnold Yeung MD Hereditary hemochromatosis (Primary Dx) 12/21/2024 Orders Only [facility] Oncology and Hematology - Ozzy [address] Arnold Yeung MD 12/12/2024 Orders Only [facility] Oncology and Hematology - [place] [address] [place] [address] Arnold Yeung MD Hereditary hemochromatosis 12/06/2024 External Device Data STL ABSTRACTION Provider, Abstract 11/28/2024 Orders Only [facility] Oncology and Hematology - Ozzy [address] [place] [address] Arnold Yeung MD Hereditary hemochromatosis 11/22/2024 External Device Data STL ABSTRACTION Provider, Abstract 11/14/2024 Telephone [facility] Oncology and Hematology - Ozzy [address] Arnold Yeung MD labs for appt 11/14/2024 Orders Only [facility] Oncology and Hematology - Ozzy [address] Arnold Yeung MD Hereditary hemochromatosis from Last 3 Months Family History Medical [...] Sign Reading Time Taken Comments Blood Pressure 159/94 12/22/2024 1:47 PM HOSTEL MANAGER Pulse 62 12/22/2024 1:44 PM HOSTEL MANAGER Temperature 36.1 C (96.9 F) 12/22/2024 1:44 PM HOSTEL MANAGER Respiratory Rate 16 12/22/2024 1:44 PM HOSTEL MANAGER Oxygen Saturation 97% 12/22/2024 1:44 PM HOSTEL MANAGER Inhaled Oxygen Concentration - - Weight 79.7 kg (175 lb 12.8 oz) 12/22/2024 1:44 PM HOSTEL MANAGER Height 167.6 cm (5' 6) 09/14/2023 1:59 PM CDT Body Mass Index 28.37 09/14/2023 1:59 PM CDT Plan of Treatment Upcoming Encounters Date Type Department Care Team (Late st Contact Info) Description 04/24/2025 2:15 PM CDT Office Visit [facility] Oncology and Hematology [facility] [address] [facility] [address] [place] [address] Arnold Yeung MD [address] [facility] [address] [place] [address] Health Maintenance Due Date Last Done Comments Pre-Diabetes and Diabetes Screening 1954 DTAP/TDAP/TD VACCINES (1 - Tdap) 1973 COLORECTAL SCREENING 08/05/1999 Colorectal Cancer Screening 08/05/1999 FIT-DNA Q 3 years 08/05/1999 FIT/FOBT Q 1 year 08/05/1999 Flex Sig/CT Colonography Q 5 years 08/05/1999 PNEUMOCOCCAL VACCINE 50+ YEARS (1 of 1 - PCV) 08/05/19 05 ZOSTER VACCINE (1 of 2) 2004 INFLUENZA VACCINE (#1) 2024 12/16/2013 RSV VACCINE (60+ or ) (1 - 1-dose 75+ series) 2029 Procedures Procedure Name Priority Date/Time Associated Diagnosis Comments IRON, TIBC, AND PERCENT SATURATION Routine 12/20/2024 11:34 AM HOSTEL MANAGER CBC WITH AUTODIFFERENTIAL Routine 2024 7:44 AM HOSTEL MANAGER from Last 3 Months Results * IRON, TIBC, AND PERCENT SATURATION (12/20/2024 11:34 AM HOSTEL MANAGER) Blood Arnold Yeung MD CHEMISTRY ORDERABLES Final Resu lt * CBC WITH AUTODIFFERENTIAL (12/20/2024 7:44 AM HOSTEL MANAGER) Blood Arnold Yeung MD HEMATOLOGY ORDERABLES Final Res ult from Last 3 Months Insurance [facility] Address: [address] [address] Care Teams Recruiting Assistant Relationship Specialty Start Date End Date Ritu Leigh MD [address] [place] [address] PCP - General Family Practice 09/15/23
--- OUTSIDE RECORDS SUMMARY | 2025-02-08 12:38 | XMS_ITS | Encounter Summary ---
Author Organization [facility] Address [address] [place] [address] Care Team Providers Care Medical Instrument Technician Name Role Phone Ritu Leigh MD Primary Care Provider [phone] Encounter Details Date Type Department Care Team (Late st Contact Info) Description 02/07/2025 External Device Data STL ABSTRACTION Provider, Abstract NO ADDRESS ON FILE Social History Tobacco Use Types Packs/Day Years [...] 04/24/2025 2:15 PM CDT Office Visit [facility] Oncology and Hematology - [place] [address] [facility] [address] [place] [address] Arnold Yeung MD [address] [facility] [address] [place] [address] documented as of this encounter Visit Diagnoses Not on filedocumented in this encounter Care Teams Medical Instrument Technician Relationship Specialty Start Date End Date Ritu Leigh MD [address] [place] [address] PCP - General Family Practice 09/15/23 documented as of this encounter
--- OUTSIDE RECORDS SUMMARY | 2025-02-08 12:38 | XMS_ITS | Encounter Summary ---
Author Organization [facility] Address [address] [place] [address] Care Team Providers Care Borderer Name Role Phone Ritu Leigh MD Primary Care Provider [phone] Encounter Details Date Type Department Care Team (Late Contact Info) Description 02/06/2025 Orders Only [facility] Oncology [facility] Hematology [facility] [address] [place] [address] Arnold Yeung MD [address] [place] [address] [employer] [address] [place] [address] Hereditary hemochromatosis Social History Tobacco Use Types Packs/Day Years [...] Department Care Team (Late Contact Info) Description 04/24/2025 2:15 PM CDT Office Visit [facility] Oncology [facility] Hematology [facility] [address] [place] [address] Arnold Yeung MD [address] [employer] [address] [place] [address] documented as of this encounter Visit Diagnoses Diagnosis Hereditary hemochromatosis documented in this encounter Care Teams Borderer Relationship Specialty Start Date End Date Ritu Leigh MD [address] [place] [address] PCP - General Family Practice 09/15/23 documented as of this encounter
--- NOTE | 2025-02-08 13:32 | ED.GENADULT ---
HPI - General Adult General Chief complaint: Fall Stated complaint: Fall over the weekend - [place] Time Seen by Provider: 02/08/25 12:27 History of Present Illness HPI narrative: 69-year-old male presented the emergency department for evaluation after having a ground level fall. Patient states approximately 2 days ago he fell struck the back of his head. Patient does have history of chronic back pain resulting an issues with generalized weakness and frequent falls. Patient states since the fall he has had some increased nausea and further dizziness. Patient states this is greater than baseline. Patient does have ecchymosis of the right eye but denies any change in vision. Related Data Allergies Allergy/AdvReac Type Severity Reaction Status Date / Time No Known Allergies Allergy Unknown Verified 02/08/25 12:04 Review of Systems Review of Systems: All systems reviewed & are unremarkable except as noted in HPI and below PMFSH Past Medical History Medical History Anxiety Essential hypertension Gastroesophageal reflux disease Hemochromatosis Irritable bowel syndrome Mixed hyperlipidemia Moderate single current episode of major depressive disorder Tinnitus of both ears Surgical History Surgical History H/O wrist surgery Family History Family History Sibling Bladder cancer Colon cancer Lung cancer Diabetes mellitus Mother Breast cancer Father Skin cancer Social History Social History Social History: Caffeine-coffee Smoking status: Never smoker Second hand tobacco smoke exposure: No Alcohol intake: former Substance use: never Substance use type: does not use Lack of Transportation: No Lack of Food: Never True Current Housing: I Have Housing Concerned About Future Housing: No Difficulty Paying Gas/Electric Bills: No Difficulty Paying for Meds: No Currently Unemployed: No Education: Trade/Vocational Certificate Difficulty w/ Childcare or Family Care: No Living arrangements: with family Occupation/Education: retired Gender identity (if verbalized by the patient): Male Spiritual care concerns: No Agree to blood products: Yes Exam Narrative: APPEARANCE: Well appearing, no pain, no distress, well-nourished. HEAD: normocephalic, atraumatic. EYES: PERRLA/EOMI, conjunctivae clear. NOSE: Normal no drainage EARS:TMS clear with good light reflex. THROAT: Pharynx clear, no exudate. NECK: Supple. No adenopathy, no masses. RESPIRATORY: Airway patent, respirations nonlabored. Clear to auscultation bilaterally, no rales, rhonchi, wheezing. CARDIOVASCULAR: Regular rate and rhythm without murmurs rubs or gallops. ABDOMINAL: Soft, nontender, nondistended, normal bowel sounds MUSCULOSKELETAL: Moves all extremities. Strength/ROM intact, No edema, No calf tenderness. NEURO: Alert. Cranial nerves II through XII intact. Good gait. Good coordination SKIN: Ecchymosis around right eye Course Vital Signs Vital signs: Vital Signs Temperature 97.8 F 02/08/25 12:14 Pulse Rate 79 02/08/25 12:14 Respiratory Rate 20 02/08/25 12:14 Blood Pressure 166/98 H 02/08/25 12:14 Pulse Oximetry 100 02/08/25 12:14 Temperature 97.8 F 02/08/25 15:55 Pulse Rate 85 02/08/25 15:55 Respiratory Rate 16 02/08/25 15:55 Blood Pressure 153/94 H 02/08/25 15:55 Pulse Oximetry 100 02/08/25 15:55 [facility] Narrative Medical decision making narrative: 69-year-old male presenting to the emergency department for evaluation for increased lightheaded dizziness after a head injury. Head CT facial CT neck CT were negative for acute abnormality. 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 Patient was negative for influenza RSV and for COVID. Chest x-ray shows no acute cardiopulmonary abnormality. Patient was encouraged close follow-up with his primary care physician. Differential Diagnosis Differential Diagnosis: Subdural hematoma subarachnoid hemorrhage, facial fracture, COVID, RSV influenza, pneumonia Lab Data Labs: Lab Results 02/08/25 Range/Units 14:26 Influenza A (RT-PCR) Negative (Negative) Influenza B (RT-PCR) Negative (Negative) RSV (RT-PCR) Negative (Negative) SARS-CoV-2 RNA (RT-PCR) Negative (Negative) Imaging Data Radiologist's impression: ITS Impressions Head CT 02/08/25 12:48 IMPRESSION: 1. Old infarct in the right basal ganglia. Head/Cervical Spine/Facial Bones CT 02/08/25 12:50 IMPRESSION: 1. No fracture. 2. Severe cervical spondylosis. Chest X-Ray 12/24/25 13:45 IMPRESSION: 1: NO ACUTE CARDIOPULMONARY DISEASE. Discharge Plan Discharge Clinical Impression: Head injury Patient Disposition: Home Condition: Stable Instructions: Antibiotic Form, Head Injury (ED) Additional Instructions: Have close follow-up with your primary care physician. Patient Language: Kinyarwanda Prescriptions: No Action naproxen 500 mg tablet 500 mg PO BID PRN (Reason: pain) Qty: 30 0RF diclofenac sodium 50 mg tablet,delayed release (DR/EC) See Rx Instructions .ROUTE .COMPLEX Qty: 60 2RF Dose Instruction: TAKE 1 TABLET BY MOUTH TWICE DAILY Patient Comments: . Rx Instructions: TAKE 1 TABLET BY MOUTH TWICE DAILY amitriptyline 25 mg tablet See Rx Instructions PO .COMPLEX Qty: 90 3RF Rx Instructions: Take 1 am and 2 HS orally; alprazolam 0.5 mg tablet 0.5 mg PO TID PRN (Reason: anxiety) Qty: 60 0RF Patient Comments: . metoprolol tartrate 25 mg tablet 50 mg PO DAILY Qty: 180 1RF Follow-up/Referrals: Reese,MD Ritu [Primary Care Provider, Family Practice]
[2025-02-08 15:07] LABS: Influenza A QL RT-PCR Negative (Negative); Influenza B QL RT-PCR Negative (Negative); RSV RNA, RT-PCR Negative (Negative); SARS-CoV-2 RNA PCR Negative (Negative)
[2025-02-08 15:55] VITALS: BP 153/94; PULSE 85; RESP 16; TEMP 36.6; O2SAT 100
== END 2025-02-08 15:57 | disposition home or self-care (01) ==
PROVIDERS: Emergency Provider Emergency Medicine; PCP Family Medicine
DX: S09.90XA Unspecified injury of head, initial encounter (principal); Z20.822 Contact with and (suspected) exposure to COVID-19; F41.9 Anxiety disorder, unspecified; I10 Essential (primary) hypertension; K21.9 Gastro-esophageal reflux disease without esophagitis; E78.5 Hyperlipidemia, unspecified; E83.119 Hemochromatosis, unspecified; W19.XXXA Unspecified fall, initial encounter; Z91.81 History of falling
CPT/HCPCS: 70450; 70486; 71046; 72125; 87637; 99284